=== PATIENT | female | born 1970 | race Caucasian/White ===

== ENCOUNTER 2017-11-02 13:25 | Emergency (ER) | payer SELFPAY ==
[2017-11-02 13:25] VITALS: BMI 41.0
--- NOTE | 2017-11-02 13:52 | C.PDOC ---
History Of Present Illness 47 yo female, hx of anxiety, presents with sifuentes, palpitations, weakness, since oct 28. no fevers, sifuentes resolved now. no n/v/d, no cp. no other complaints Time Seen by Provider: 11/02/17 13:33 Chief Complaint (Nursing): Medical Clearance Past Medical History Reviewed: Historical Data, Nursing Documentation, Vital Signs Vital Signs: Last Vital Signs Temp 98.2 F 11/02/17 15:52 Pulse 68 11/02/17 15:52 Resp 20 11/02/17 15:52 BP 117/73 11/02/17 15:52 Pulse Ox 100 11/02/17 15:52 - Medical History PMH: Anxiety, Asthma, Depression Family History: States: Stroke - Social History Hx Tobacco Use: No Hx Alcohol Use: No Hx Substance Use: No - Immunization History Hx Tetanus Toxoid Vaccination: No Hx Influenza Vaccination: Yes Hx Pneumococcal Vaccination: No Review Of Systems Constitutional: Positive for: Weakness Cardiovascular: Positive for: Palpitations Physical Exam - Physical Exam Appears: Well, No Acute Distress Skin: Normal Color, Warm, Dry Eye(s): bilateral: Normal Inspection, PERRL, EOMI Nose: Normal Throat: Normal Neck: Normal Cardiovascular: Rhythm Regular Respiratory: Normal Breath Sounds Gastrointestinal/Abdominal: Normal Exam Back: Normal Inspection Extremity: Normal ROM Neurological/Psych: Oriented x3, Normal Speech, Normal Cognition, Normal Cranial Nerves, No Cerebellar Signs, Normal Motor, Normal Sensation ED Course And Treatment - Laboratory Results Result Diagrams: 11/02/17 14:02 11/02/17 14:02 O2 Sat by Pulse Oximetry: 99 Medical Decision Making Medical Decision Making: ro metabolic, cardiac, infectious etiology - pt well appearing - symptoms 1 week. atypical symtposm ekg nsr [address] changes normal interval.s Disposition - Disposition Referrals: [facility] [Outside] [employer] [Outside] [facility] [employer] [Outside] Raulito Chapa MD [Staff Provider] - Disposition: HOME/ ROUTINE Disposition Time: 15:10 Condition: STABLE Additional Instructions: follow up with specialsit. return to er with worsening symptoms or concerns Instructions: Palpitations (ED), Acute Headache (DC), Weakness (GEN) Forms: [employer] (French) - Clinical Impression Clinical Impression: Palpitations, Headache
[2017-11-02 14:07] LABS: BASO # 0.1 K/uL (0.0-0.2); BASO % 1.3 % (0.0-2.0); EOS # 0.2 K/uL (0.0-0.7); EOS % 2.1 % (0.0-4.0); HEMOGLOBIN 12.2 g/dL (11.0-16.0); LYMPH # 3.3 K/uL (1.0-4.3); LYMPH % 38.7 % (20.0-40.0); MEAN CELL VOLUME 82.9 fL (81.0-99.0); MEAN CORPUSCULAR HEMOGLOBIN 27.9 pg (27.0-31.0); MEAN CORPUSCULAR HGB CONC 33.7 g/dL (33.0-37.0); MEAN PLATELET VOLUME 7.8 fL (7.2-11.7); MONO # 0.5 K/uL (0.0-0.8); MONO % 5.3 % (0.0-10.0); NEUT # 4.5 K/uL (1.8-7.0); NEUT % 52.6 % (50.0-75.0); RBC 4.38 Mil/uL (3.80-5.20); RED CELL DISTRIBUTION WIDTH 13.6 % (11.5-14.5); WHITE BLOOD COUNT 8.6 K/uL (4.8-10.8)
[2017-11-02 14:11] LABS: HCG,QUALITATIVE URINE NEGATIVE (NEGATIVE)
--- NOTE | 2017-11-02 14:12 | RAD ---
HISTORY: chest pain COMPARISON: None available. TECHNIQUE: Chest, one view. FINDINGS: [place] limited by habitus. LUNGS: No focal consolidation. Please note that chest x-ray has limited sensitivity for the detection of pulmonary masses. PLEURA: No significant pleural effusion identified. No definite pneumothorax . CARDIOVASCULAR: Heart size appears within normal limits. Right peritracheal opacity, possibly tortuous vasculature. OSSEOUS STRUCTURES: No acute osseous abnormality identified. VISUALIZED UPPER ABDOMEN: Unremarkable. OTHER FINDINGS: None. IMPRESSION: No focal consolidation, significant pleural effusion, or definite pneumothorax identified. Right peritracheal opacity, possibly tortuous vasculature.
[2017-11-02 14:20] LABS: PROTHROMBIN TIME 10.7 SECONDS (9.7-12.2)
[2017-11-02 14:23] LABS: SQUAMOUS EPITHIAL 4 /hpf (0-5); URINE BACTERIA RARE (<OCC); URINE BILIRUBIN NEGATIVE (NEGATIVE); URINE BLOOD 2+ (NEGATIVE); URINE CLARITY Clear (Clear); URINE COLOR Yellow (YELLOW); URINE GLUCOSE (UA) NORMAL (Normal); URINE LEUKOCYTE ESTERASE NEG Leu/uL (Negative); URINE NITRATE NEGATIVE (NEGATIVE); URINE PROTEIN NEGATIVE (NEGATIVE); URINE UROBILINOGEN NORMAL mg/dL (0.2-1.0)
[2017-11-02 14:48] LABS: ALT/SGPT 35 U/L (9-52); AST/SGOT 27 U/L (14-36); BLOOD UREA NITROGEN 12 mg/dL (7-17); CALCIUM 8.5 mg/dl (8.6-10.4); GFR AFRICAN-AMERICAN > 60; GFR NON-AFRICAN AMERICAN > 60
[2017-11-02] MEDS ORDERED: Potassium Chloride 20 mEq ER Tab PO STA (14:48)
[2017-11-02] MEDS ORDERED: Potassium Chloride 20 mEq ER Tab PO ONE (15:26)
[2017-11-02 15:52] VITALS: BP 117/73; PULSE 68; RESP 20; TEMP 98.2
[2017-11-02 22:39] VITALS: O2SAT 99
--- NOTE | 2017-11-03 23:31 | CARD ---
APPROVED REPORT EKG Measurement Heart [id number] <Conclusion> Normal sinus rhythm Moderate voltage criteria for LVH, may be normal variant Borderline ECG
== END 2017-11-02 15:51 | disposition home or self-care (01) ==
LOC: C.ER 13:25
DX: R00.2 Palpitations (principal); R51 Headache; E87.6 Hypokalemia